=== PATIENT | female | born 1960 | race Caucasian/White ===

== ENCOUNTER → 2023-08-13 13:29 | Outpatient (REF) | payer MEDICARE, OTHER, SELFPAY | LOC: WDC 13:29 | PROVIDERS: ATTENDING PHYSICIAN Family Medicine | DX: Z12.31 Encounter for screening mammogram for malignant neoplasm of breast (principal) | CPT/HCPCS: 77063; 77067 ==

== ENCOUNTER → 2024-10-09 07:13 | Outpatient (REF) | payer MEDICARE, OTHER, SELFPAY | LOC: WDC 07:13 | PROVIDERS: ATTENDING PHYSICIAN Family Medicine | DX: Z12.31 Encounter for screening mammogram for malignant neoplasm of breast (principal) | CPT/HCPCS: 77063; 77067 ==